=== PATIENT | female | born 1970 | race Native Hawaiian/Other Pacific Islander ===

== ENCOUNTER 2016-07-19 13:28 | Outpatient (CLI) | payer OTHER | END 2016-07-19 23:46 | disposition home or self-care (01) | LOC: US 13:28 → MAMMO 13:30 → US 23:46 | DX: N63 Unspecified lump in breast (principal) | CPT/HCPCS: G0204-TC ==

== ENCOUNTER 2017-10-02 23:06 | Emergency (ER) | payer OTHER ==
[~2017-10-02] VITALS: Ht 188 cm; Wt 63.0 kg
[2017-10-02 23:37] VITALS: BP 104/64; TEMP 98.2
== END 2017-10-02 23:40 | disposition home or self-care (01) ==
LOC: ED 23:06
PROC: 0HQ1XZZ Repair Face Skin, External Approach (ICD-10-PCS; principal; 2017-10-02)
DX: S01.81XA Laceration without foreign body of other part of head, initial encounter (principal); W06.XXXA Fall from bed, initial encounter; Y92.098 Other place in other non-institutional residence as the place of occurrence of the external cause
CPT/HCPCS: 99283

== ENCOUNTER 2017-12-14 01:19 | Outpatient (CLI) | payer OTHER | END 2017-12-14 01:45 | disposition home or self-care (01) | LOC: AMB 01:19 | DX: E11.649 Type 2 diabetes mellitus with hypoglycemia without coma (principal) ==